=== PATIENT | male | born 1940 | race Two or more races ===

== ENCOUNTER 2016-09-29 10:37 | Emergency (ER) | payer MEDICARE ==
[~2016-09-29] VITALS: Ht 162.6 cm; Wt 69.1 kg
[~2016-09-29 10:37] MED LIST: ASPI-628 PO; CARV3.122 PO; LISI-571 PO; SPIRONALACTONE PO; TAMS0.4C29 PO; TIOT18CA3 IH
[2016-09-29 10:48] VITALS: BP 100/53; PULSE 76; RESP 19; O2SAT 97
--- NOTE | 2016-09-29 10:49 | ED.REPORT ---
HPI-General Illness Date of Service Sep 29, 2016 ED Provider: Dr. Lewis Dash MD A 75 year old male with a history of cardiomyopathy and BPH presents to the ED complaining of intermittent dyspnea that began a few days ago. Patient reports that his dyspnea exacerbated when he is lying down. During the episodes, patient states that he feels like he is "dying" and "unable to catch his breath ". Patient expressed concern for syncope. Associated symptoms include decreased appetite, cough and fever. Patient denies any current SOB. He reports that he was diagnosed with COPD. Nursing Notes Stated Complaint: COLD SYMPTOMS FROM URGENT CARE Chief Complaint: Respiratory Complaints Nursing Notes Reviewed: Yes Allergies: Coded Allergies: No Known Drug Allergies (Verified Allergy, Unknown, 09/29/16) Scheduled ([Spironalactone]) 12.5 MG PO DAILY Aspirin (Aspir 81) 81 Mg Tablet.dr 81 MG PO BID Carvedilol (Carvedilol) 3.125 Mg Tablet 3.125 MG PO BID Lisinopril (Lisinopril) 5 Mg Tablet 5 MG PO DAILY Tamsulosin ER (Tamsulosin ER) 0.4 Mg Cap.er.24h 0.4 MG PO DAILY Tiotropium [place] (Spiriva) 18 Mcg Cap.w.dev 18 MCG IH DAILY General Time Seen by MD: 10:48 Chief Complaint Other (Dyspnea ) Hx Obtained From: Patient Arrived By: Walk-in Sudden in Onset?: No Onset Occurred: 3 days ago Symptom Duration: Intermittent Associated with: Reports: Cough, Fever, Shortness of breath Pertinent Negative: Pt denies other symptoms Recent Healthcare: No recent doctor visit, No recent hospitalization Past Medical History Past Medical History Nonischemic cardiomyopathy Gout BPH Reports history of COPD and CHF Past Surgical History Reports: Cholecystectomy Smoking History Never Smoker Social History Other Social History: Good social support, Local resident Ambulatory Status Independent Review of Systems Pt reports decreased appetite Full Review of Systems Constitutional: Reports: Chills, Fever Respiratory: Reports: Dyspnea on exertion, Non-productive cough, Shortness of breath GI: Denies: Abdominal pain, Nausea, Vomiting Neurologic: Reports: Dizziness (Pt reports concern for syncope during episodes of dyspnea ), Denies: Change LOC Complete sys rev & neg: except as marked. Physical Exam Vital Signs Vital Signs Date Time Temp Pulse Resp B/P Pulse Ox O2 Delivery O2 Flow Rate FiO2 09/29/16 14:48 62 16 102/62 97 Room Air 1/7/17 13:23 67 16 106/58 99 Room Air 09/29/16 11:21 64 16 103/52 97 Room Air 09/29/16 10:48 37.0 76 19 100/53 97 Room Air Initial VS: Reviewed Head / Eyes: Atraumatic, Normocephalic, PERRL Extremities: Vascular intact, Neuro intact, No swelling, No tenderness Skin: Warm, Dry, No cyanosis Neurologic: Alert, Oriented, Nonfocal Psychiatric: Mood/affect normal, Behavior normal, Normal thought content General/Constitutional: Awake, Alert Respiratory / Chest: Atraumatic, Breath sounds NL, Breath sounds = bilat Cardiovascular: Heart rate NL, Regular rhythm, Heart sounds NL Abdomen: Atraumatic, Soft Interpretation & Diagnostics CT CHEST ANGIO with IV contrast Read by Radiology IMPRESSION: No evidence of pulmonary embolism. No acute consolidation. Mild bibasilar scattered atelectasis. Small hiatal hernia. Cardiomegaly. Dictated by: Brandon Bautista M.D. on 09/29/2016 at 13:21 Lab Results Interpretation Result Diagram: 09/29/16 1037 09/29/16 1037 Test 09/29/16 10:37 09/29/16 11:08 09/29/16 11:55 09/29/16 14:08 White Blood Count 14.7th/mm3 (3.8-10.1) Red Blood Count 4.52mil/mm3 (4.40-5.80) Hemoglobin 14.3g/dL (13.8-17.2) Hematocrit 42.6% (41.0-50.0) Mean Corpuscular Volume 94.2fL (81-100) Mean Corpuscular Hemoglobin 31.6pg (27.0-35.0) Mean Corpuscular Hemoglobin Concent 33.6% (32.0-37.0) Red Cell Distribution Width 12.9% (12.3-15.4) Platelet Count 289bil/L (150-400) Neutrophils (%) (Auto) 84.6% (40-74) Lymphocytes (%) (Auto) 9.1% (14-46) Monocytes (%) (Auto) 5.7% (4-12) Eosinophils (%) (Auto) 0.1% (0-5) Basophils (%) (Auto) 0.1% (0-3) D-Dimer 1.1mg/L (<0.50) Sodium Level 136mEq/L (134-144) Potassium Level 4.7mEq/L (3.5-5.2) Chloride Level 99mEq/L (97-108) Carbon Dioxide Level 22mmol/L (18-29) Blood Urea Nitrogen 16mg/dL (8-27) Creatinine 1.20mg/dL (0.76-1.27) Estimat Glomerular Filtration Rate 63mL/min (>59) Glucose Level 136mg/dL (60-99) Calcium Level 9.2mg/dL (8.5-10.1) Magnesium Level 1.9mg/dL (1.6-2.6) Total Bilirubin 2.6mg/dL (0.0-1.2) Aspartate Amino Transf (AST/SGOT) 175U/L (0-50) Alanine Aminotransferase (ALT/SGPT) 135U/L (0-44) Alkaline Phosphatase 510U/L (25-160) Troponin T 0.014ug/L (0.0-0.011) Pro-B-Type Natriuretic Peptide 404.0pg/mL (0-376) Total Protein 8.0g/dL (6.4-8.4) Albumin 3.4g/dL (3.4-5.0) Hold Maria Top Tube Received (Received) Lactic Acid Level 2.0mmol/L (0.4-2.0) Hold Urine Received (Received) ECG Interpretation ECG Interpretation: Sinus Rhythm Rate 69 Lateral T wave inversions Time: 10:54 Interpreted by: ED physician X-Ray Chest Interpretation Chest Xray Interpretation: IMPRESSION: No acute disease Dictated by: Brandon Bautista M.D. on 09/29/2016 at 11:42 Interpretation / Wet Read by: Interpret - Radiologist CT Abd / Pelvis Interpretation IMPRESSION: Intra-and extrahepatic biliary ductal dilatation. There appears to be a 1.7 cm soft tissue attenuation nodule (versus low attenuation non-radiopaque calculus) in the region of the ampulla, possibly within the duodenum or involving the duodenal wall. This could represent neoplasm or calculus. Recommend further assessment with ERCP/upper endoscopy. Circumferential bladder wall thickening, which is nonspecific however further assessment to exclude malignancy could be performed with cystoscopy, as clinically indicated. Recommend correlation with urinalysis. Colonic diverticulosis. Enlarged prostate Findings are personally telephoned and discussed with Dr. Dash in the emergency department 1315 hours 09/29/16 Dictated by: Brandon Bautista MD. on 09/29/2016 at 13:18 Study type: Abdominal CT IV contrast, Abdom CT oral contrast Interpretation / Wet Read by: Interpret - Radiologist Re-Eval/Medical Decision Med Decision/Clinical Course Concern for either cholangitis versus a mass. Leukocytosis Abnormal liver function tests and hypotensive at urgent care beg the question of whether this is infectious. IV Zosyn given. No longer hypotensive after IV fluids. Patient will transfer to [place] for ERCP Time of Eval: 12:02 Patient Status: Condition improved Re-Evaluation/Progress Note: Patient is rechecked. He is informed of his lab results. Time of Eval: 13:13 Patient Status: Condition improved Re-Evaluation/Progress Note: Patient is rechecked. He is informed of the plan to obtain a CT. All of the patient's questions are addressed. He understands and agrees with the treatment plan. Time of Eval: 13:35 Patient Status: Condition improved Re-Evaluation/Progress Note: Patient is rechecked. He agrees with plan to admit. Time of Eval: 14:09 Patient Status: Condition improved Re-Evaluation/Progress Note: Patient is rechecked. He is informed of the consult with GI. He agrees with the plan to transfer to [place]. Consultation #1: Referral / Consult Name: Andrae Swanson MD Consulted With: Surgeon Call Returned at: 13:45 Marketing/Sales Person: Will see patient, Agrees with eval, Agrees with plan Note: GI Recommends urgent ERCP Patient requires transfer Consultation #2: Call Returned at: 14:10 Marketing/Sales Person: Will see patient, Agrees with eval, Agrees with plan, Accepts admit Note: [place] [facility] Specialist: Dr. Elmer Cooper MD Agrees patient should have ERCP Counseled Regarding: Diagnosis, Lab results, Need for transfer Discharge & Departure Primary Impression: Cholangitis Disposition: Transfer, Acute Care Facility ([place] ) Discharge Condition All VS Reviewed: Yes Condition: Stable Referrals: Lincoln Dillon MD (PCP) Scribe Attestation Portions of this note were transcribed by Anna Gonzalez. I, Dr. Dash personally performed the history, physical exam and medical decision-making; I reviewed and confirmed the accuracy of the information in the transcribed note. Signed by: Anna Gonzalez, 09/29/16, 1500. copies to: Lincoln Dillon MD, Timothy S DO Sep 29, 2016 10:49 ANNA GONZALEZ Sep 29, 2016 11:06
[2016-09-29] MEDS ORDERED: 0.9% Sodium Chloride 1,000 ML IV ONE (10:59)
[2016-09-29 11:12] LABS: BASOPHILS % (AUTO) 0.1 % (0-3); EOSINOPHILS % (AUTO) 0.1 % (0-5); MONOCYTES % (AUTO) 5.7 % (4-12); Mean Corpuscular Hemoglobin 31.6 pg (27.0-35.0); Mean Corpuscular Volume 94.2 fL (81-100); NEUTROPHILS % (AUTO) 84.6 % (40-74); Platelet Count 289 bil/L (150-400)
[2016-09-29 11:21] VITALS: BP 103/52; PULSE 64; RESP 16; O2SAT 97
[2016-09-29 11:38] LABS: TROPONIN T 0.014 ug/L (0.0-0.011)
--- NOTE | 2016-09-29 11:44 | DRSVH ---
PROCEDURE: X-RAY CHEST, TWO VIEWS ([id number]) INDICATIONS: dyspnea TECHNIQUE: 2 views of the chest were acquired. COMPARISON: [facility], , CHEST 2VW, 01/19/2015, 10:25. FINDINGS: Surgical changes and devices: Cardiac AICD Lungs and pleura: No pleural effusions or pneumothorax. Lungs are clear. Mediastinum: Mediastinal contours are normal. Heart size is normal. Bones and chest wall: No suspicious bony abnormalities. Soft tissues appear unremarkable. IMPRESSION: No acute disease Dictated by: Brandon Bautista M.D. on 09/29/2016 at 11:42 Approved by: Brandon Bautista M.D. on 09/29/2016 at 11:42
[2016-09-29 11:49] LABS: Magnesium 1.9 mg/dL (1.6-2.6)
--- NOTE | 2016-09-29 13:20 | DRSVH ---
PROCEDURE: CT ABDOMEN AND PELVIS WITH CONTRAST ([id number]) INDICATIONS: leukocytosis, abnormal LFT TECHNIQUE: After the administration of intravenous contrast, 5 mm thick sections acquired from the diaphragm to the symphysis. 5 mm coronal and sagittal reformats were acquired. For radiation dose reduction, the following was used: automated exposure control, adjustment of mA and/or kV according to patient siz e. COMPARISON: [facility], CT, ABDOMEN W/O CONTRAST, 07/08/2014, 23:09. [facility], CT, ABDOMEN W&W/O CONTRAST, 07/12/2014, 6:44. [facility], CT, ABD/PELVIS W/CON (PN L), 03/05/2014, 5:14. FINDINGS: Image quality: Excellent. ABDOMEN: Lung bases: Lung bases are clear. Heart size is mildly enlarged. Solid organs: Intrahepatic biliary ductal dilatation is present in the left and right lobes of the l iver. There is also prominent extrahepatic biliary tree. There is prominent focal soft tissue attenua tion at the point of obstruction in the distal ampullary segment, or possibly associated with the duo denal wall. This measures approximately 1.7 x 1.6 cm cross-sectionally Gallbladder surgically absent. Pancreas and spleen grossly normal. No adrenal nodule identified. Righ t kidney absent. Left kidney grossly unremarkable. Peritoneum and bowel: Bowel loops demonstrate normal wall thickness and caliber. No free fluid or a ir. Scattered colonic diverticula are present without evidence of acute complication. Normal appendi x. Nodes and vessels: No retroperitoneal or mesenteric adenopathy by size criteria. Aorta and inferior vena cava are normal in size. Miscellaneous: No ventral hernias. PELVIS: Genitourinary: Bladder decompressed however there may be circumferential bladder wall thickening. Pro state enlarged. Miscellaneous: No inguinal hernias or adenopathy. Bones: No suspicious bony lesions. No vertebral body compression fractures. IMPRESSION: Intra-and extrahepatic biliary ductal dilatation. There appears to be a 1.7 cm soft tissue attenuatio n nodule (versus low attenuation non-radiopaque calculus) in the region of the ampulla, possibly with in the duodenum or involving the duodenal wall. This could represent neoplasm or calculus. Recommend further assessment with ERCP/upper endoscopy. Circumferential bladder wall thickening, which is nonspecific however further assessment to exclude m alignancy could be performed with cystoscopy, as clinically indicated. Recommend correlation with uri nalysis. Colonic diverticulosis. Enlarged prostate Findings are personally telephoned and discussed with Dr. Dash in the emergency department 1315 h ours 09/29/16 Dictated by: Brandon Bautista MD. on 09/29/2016 at 13:18 Approved by: Brandon Bautista M.D. on 09/29/2016 at 13:18
[2016-09-29 13:23] VITALS: BP 106/58; PULSE 67; RESP 16; O2SAT 99
--- NOTE | 2016-09-29 13:23 | DRSVH ---
PROCEDURE: CT ANGIO CHEST PULMONARY EMBOLISM ([id number]) INDICATIONS: dyspnea, elevated ddimer TECHNIQUE: After the administration of intravenous contrast, 2 mm thick sections acquired from the pulmonary api randall to the posterior costophrenic angles. 3-dimensional maximum intensity projection (MIP) coronal a nd sagittal reformats were then acquired through the thorax. For radiation dose reduction, the follo wing was used: automated exposure control, adjustment of mA and/or kV according to patient size. COMPARISON: None. FINDINGS: Image quality: Excellent. Pulmonary arteries: Pulmonary arteries are normal in size, and demonstrate no intraluminal filling d efects to suggest central pulmonary embolism. Lungs and pleura: Lungs are clear. No pleural effusions or pneumothorax. Central and peripheral ai rways are patent. Mediastinum: Heart size is enlarged, without pericardial effusion. No mediastinal or hilar adenopat hy. Thoracic aorta is normal in caliber and enhancement. Esophagus is normal in caliber, possible s mall hiatal hernia. Bones and chest wall: No suspicious bony lesions. Ribs and thoracic spine appear intact throughout. Thyroid gland grossly unremarkable. No axillary or supraclavicular adenopathy. Abdomen: Extra and intrahepatic biliary ductal dilatation better seen on the comparison abdomen pelvi s CT dated same date. Please see report IMPRESSION: No evidence of pulmonary embolism. No acute consolidation. Mild bibasilar scattered atelectasis. Small hiatal hernia. Cardiomegaly. Dictated by: Brandon Bautista M.D. on 09/29/2016 at 13:21 Approved by: Brandon Bautista M.D. on 09/29/2016 at 13:21
[2016-09-29] MEDS ORDERED: 0.9% Sodium Chloride 1,000 ML IV SCH (13:25)
[2016-09-29] MEDS ORDERED: Piperacillin-Tazo 3.375 Gm Inj 3.375 GM in Dextrose 5% Minibag Plus 50 ML IV ONE (13:25)
[2016-09-29 14:48] VITALS: BP 102/62; PULSE 62; RESP 16; O2SAT 97
[2016-09-29 15:41] VITALS: BP 117/62; PULSE 65; RESP 18; O2SAT 98
== END 2016-09-29 15:42 | disposition short-term general hospital (02) ==
LOC: SED 10:37
DX: K83.0 Cholangitis (principal); J44.9 Chronic obstructive pulmonary disease, unspecified; I50.9 Heart failure, unspecified; Z79.82 Long term (current) use of aspirin
CPT/HCPCS: 71020; 71275; 74177; 80053; 83605; 83735; 83880; 84484; 85025; 85379; 87040; 87804; 93005; 96361; 96365; 99285; J2543; J7030; Q9967